=== PATIENT | male | born 1965 | race Two or more races ===

== ENCOUNTER 2018-09-30 16:20 | Emergency (ER) | payer MEDICAID, OTHER ==
[~2018-09-30] VITALS: Ht 170.2 cm; Wt 83.5 kg
[2018-09-30] MEDS ORDERED: cloNIDine HCL 0.1 MG TAB ONE (16:39)
[2018-09-30] MEDS ORDERED: cloNIDine HCL 0.1 MG TAB PO ONE (16:45)
[2018-09-30] MEDS ORDERED: TETANUS-DIPTH-ACEL PERTUSSIS 0.5ML SYRG IM ONE (17:30)
[2018-09-30 18:29] VITALS: BP 156/84
== END 2018-09-30 18:43 | disposition home or self-care (01) ==
LOC: ER 16:21
DX: S00.81XA Abrasion of other part of head, initial encounter (principal); I16.0 Hypertensive urgency; I10 Essential (primary) hypertension; W50.0XXA Accidental hit or strike by another person, initial encounter; Y93.89 Activity, other specified; Y99.8 Other external cause status; Y92.148 Other place in prison as the place of occurrence of the external cause
CPT/HCPCS: 70450; 72125; 90471; 90715